=== PATIENT | female | born 1970 | race Caucasian/White ===

== ENCOUNTER 2018-02-17 14:05 | Emergency (ER) | payer BC ==
[~2018-02-17] VITALS: Ht 162.6 cm; Wt 59.0 kg
[~2018-02-17 14:05] MED LIST: METH36TA PO; QUET25TA PO
[2018-02-17] MEDS ORDERED: HYDR-4354 PO (14:14)
--- NOTE | 2018-02-17 15:43 | NUR ---
mse completed, aci given. pt ambulated w/o diff/took all belongings.
[2018-02-17 15:44] VITALS: BP 111/66
== END 2018-02-17 15:45 | disposition home or self-care (01) ==
LOC: ER 14:05
DX: F45.0 Somatization disorder (principal); R25.2 Cramp and spasm; Z88.8 Allergy status to other drugs, medicaments and biological substances; Z79.891 Long term (current) use of opiate analgesic; Z79.899 Other long term (current) drug therapy
CPT/HCPCS: 70450; A4663